=== PATIENT | female | born 1950 | race Caucasian/White ===

== ENCOUNTER 2022-11-27 14:03 | Emergency (ER) | payer MEDICARE, OTHER ==
[~2022-11-27] VITALS: Ht 160 cm; Wt 62.6 kg
[2022-11-27] MEDS ORDERED: METRONIDAZOLE 500 MG/NS 100ML 100 ML IV ONE ×2 (15:00→16:17)
[2022-11-27] MEDS ORDERED: CEFTRIAXONE 1 G in IV DEXTROSE 5% 50 ML IV ONE (15:00)
[2022-11-27] MEDS ORDERED: IV NORMAL SALINE 1000 ML BAG IV ONE (15:00)
[2022-11-27 15:15] LABS: BASOPHILS % (AUTO) 0.3 % (0.0-2.0); EOSINOPHILS % (AUTO) 0.1 % (0.0-7.0); HEMOGLOBIN 11.3 g/dL (10.9-14.3); LYMPHOCYTES # (AUTO) 1.5 K/uL (0.8-4.8); LYMPHOCYTES % (AUTO) 20.5 % (20.5-51.5); MEAN CORPUSCULAR HEMOGLOBIN 30.6 uug (24.7-32.8); MEAN CORPUSCULAR HGB CONC 34 g/dL (32.3-35.6); MEAN CORPUSCULAR VOLUME 89.4 fL (75.5-95.3); MONOCYTES # (AUTO) 0.4 K/uL (0.1-1.30); NEUTROPHILS # (AUTO) 5.2 K/uL (1.8-8.9); NEUTROPHILS % (AUTO) 73.1 % (38.5-71.5); PLATELET COUNT (AUTO) 331 K/uL (179-408); RED BLOOD CELL COUNT(AUTO) 3.69 MIL/uL (3.63-4.92); RED CELL DISTRIBUTION WIDTH 13.3 % (12.3-17.7); WHITE BLOOD COUNT (AUTO) 7.1 K/uL (3.8-11.8)
[2022-11-27 15:16] LABS: DIFFERENTIAL COMMENT 1
[2022-11-27 15:26] LABS: CARBON DIOXIDE 29 mmol/L (21-32); CHLORIDE 96 mmol/L (98-107); CREATININE 0.6 mg/dL (0.6-1.3); GLUCOSE 170 mg/dL (74-106); SODIUM SERUM 130 mmol/L (136-145); UREA NITROGEN, BLOOD 5 mg/dL (7-18)
[2022-11-27 15:40] LABS: ALANINE AMINOTRANSFERASE 25 U/L (14-59); ALBUMIN 3.3 g/dL (3.4-5.0); ALKALINE PHOSPHATASE 43 U/L (50-136); ASPARTATE AMINOTRANSFERASE 10 U/L (15-37); BILIRUBIN,DIRECT < 0.1 mg/dL (0.0-0.2); BILIRUBIN,TOTAL 0.3 mg/dL (0.2-1.0); NT-PRO BNP 144 pg/mL (0-125); TOTAL PROTEIN, SERUM 6.8 g/dL (6.4-8.2)
[2022-11-27 15:42] LABS: LIPASE 158 U/L (73-393)
[2022-11-27 15:43] LABS: ACETONE, SERUM NEGATIVE (NEGATIVE)
[2022-11-27] MEDS ORDERED: CEFTRIAXONE /D5W 50ML IVPB **ER PYXIS IV ONE ×2 (16:17→16:33)
[2022-11-27] MEDS ORDERED: ONDA4TAB11 PO (17:01)
[2022-11-27] MEDS ORDERED: AMOX-430 PO (17:01)
[2022-11-27] MEDS ORDERED: DIPH1TAB PO (17:01)
[2022-11-27 19:08] LABS: *BILIRUBIN,URIN NEGATIVE (NEGATIVE); *BLOOD, URINE NEGATIVE (NEGATIVE); *CLARITY,URINE CLEAR (CLEAR); *COLOR,URINE YELLOW (YELLOW); *KETONES,URINE NEGATIVE (NEGATIVE); *PROTEIN,URINE NEGATIVE (NEGATIVE); *UROBILINOGEN,URINE 0.2 E.U./dl (NORMAL); LEUKOCYTE ESTERASE ,URINE NEGATIVE (NEGATIVE); NITRITE, URINE NEGATIVE (NEGATIVE); UGLUCOSE NEGATIVE (NEGATIVE)
[2022-11-27 19:40] VITALS: BP 125/66; TEMP 98.3; O2SAT 98
== END 2022-11-27 19:30 | disposition home or self-care (01) ==
LOC: ER 14:18
DX: K52.89 Other specified noninfective gastroenteritis and colitis (principal); B96.89 Other specified bacterial agents as the cause of diseases classified elsewhere; E86.0 Dehydration; E11.9 Type 2 diabetes mellitus without complications; E78.5 Hyperlipidemia, unspecified; Z79.2 Long term (current) use of antibiotics; Z79.899 Other long term (current) drug therapy
CPT/HCPCS: 99285; 74176; 96365; 71045; 96367; 80076; 80048; 81003; 82009; 83880; 83690; 85025; 84145; 85730; 87040 ×2; 84484; 36415; 93005; 83605; J0696 ×2; J3490; J7040; A4663

== ENCOUNTER 2024-04-09 16:13 | Emergency (ER) | payer MEDICARE, OTHER ==
[~2024-04-09] VITALS: Ht 157.5 cm; Wt 67.1 kg
[~2024-04-09 16:13] MED LIST: AMOX-430 PO; DIPH1TAB PO; ONDA4TAB11 PO
[2024-04-09] MEDS ORDERED: ESOM40SU PO (16:28)
[2024-04-09] MEDS ORDERED: LEVO125T68 PO (16:28)
[2024-04-09] MEDS ORDERED: OZEMPIC (16:28)
[2024-04-09] MEDS ORDERED: EMPA10TA PO (16:29)
[2024-04-09] MEDS ORDERED: VALS40TA12 PO (16:29)
[2024-04-09] MEDS ORDERED: SIMV20TA2 PO (16:29)
[2024-04-09] MEDS ORDERED: AMLO-212 PO (16:31)
[2024-04-09] MEDS ORDERED: CALC-1026 PO (16:31)
[2024-04-09] MEDS ORDERED: CLON0.1T PO (16:31)
[2024-04-09] MEDS ORDERED: HYDR50TA4 PO (16:31)
[2024-04-09] MEDS ORDERED: NAPR-1196 PO (16:31)
[2024-04-09] MEDS ORDERED: ONDANSETRON 4 MG/2 ML VIAL ONE (16:45)
[2024-04-09] MEDS: ONDANSETRON 4 MG/2 ML VIAL IV ONE (16:52)
[2024-04-09 16:53] LABS: BASOPHILS % (AUTO) 0.5 % (0.0-2.0); EOSINOPHILS # (AUTO) 0.1 K/uL (0.0-0.7); EOSINOPHILS % (AUTO) 1.2 % (0.0-7.0); HEMATOCRIT 34.4 % (31.2-41.9); HEMOGLOBIN 11.9 g/dL (10.9-14.3); LYMPHOCYTES # (AUTO) 2.3 K/uL (0.8-4.8); LYMPHOCYTES % (AUTO) 34.9 % (20.5-51.5); MEAN CORPUSCULAR HEMOGLOBIN 31.2 uug (24.7-32.8); MEAN CORPUSCULAR HGB CONC 35 g/dL (32.3-35.6); MEAN CORPUSCULAR VOLUME 90.1 fL (75.5-95.3); MONOCYTES # (AUTO) 0.7 K/uL (0.1-1.30); MONOCYTES % (AUTO) 10.8 % (0.0-11.0); NEUTROPHILS # (AUTO) 3.4 K/uL (1.8-8.9); NEUTROPHILS % (AUTO) 52.6 % (38.5-71.5); PLATELET COUNT (AUTO) 322 K/uL (179-408); RED BLOOD CELL COUNT(AUTO) 3.82 MIL/uL (3.63-4.92); WHITE BLOOD COUNT (AUTO) 6.5 K/uL (3.8-11.8)
[2024-04-09 16:57] LABS: DIFFERENTIAL COMMENT 1
[2024-04-09 17:08] LABS: ALANINE AMINOTRANSFERASE 24 U/L (14-59); ALBUMIN 4.3 g/dL (3.4-5.0); ALKALINE PHOSPHATASE 50 U/L (50-136); ASPARTATE AMINOTRANSFERASE 11 U/L (15-37); BILIRUBIN,DIRECT 0.1 mg/dL (0.0-0.2); BILIRUBIN,TOTAL 0.4 mg/dL (0.2-1.0); CALCIUM 9.5 mg/dL (8.5-10.1); CARBON DIOXIDE 27 mmol/L (21-32); CHLORIDE 98 mmol/L (98-107); CREATININE 0.9 mg/dL (0.6-1.3); GLUCOSE 125 mg/dL (74-106); LIPASE 61 U/L (16-77); SODIUM SERUM 136 mmol/L (136-145); TOTAL PROTEIN, SERUM 7.7 g/dL (6.4-8.2); UREA NITROGEN, BLOOD 15 mg/dL (7-18)
[2024-04-09 17:43] LABS: *BILIRUBIN,URIN NEGATIVE (NEGATIVE); *BLOOD, URINE NEGATIVE (NEGATIVE); *CLARITY,URINE CLEAR (CLEAR); *COLOR,URINE YELLOW (YELLOW); *KETONES,URINE NEGATIVE (NEGATIVE); *PROTEIN,URINE NEGATIVE (NEGATIVE); *UROBILINOGEN,URINE 0.2 E.U./dl (NORMAL); LEUKOCYTE ESTERASE ,URINE NEGATIVE (NEGATIVE); NITRITE, URINE NEGATIVE (NEGATIVE)
[2024-04-09 17:45] LABS: UGLUCOSE 3+ (NEGATIVE)
[2024-04-09] MEDS: IV NORMAL SALINE 1000 ML BAG IV ONE (17:46)
[2024-04-09] MEDS ORDERED: POTA10CA43 PO (18:15)
[2024-04-09 19:21] VITALS: BP 104/65; TEMP 97.6; O2SAT 96
== END 2024-04-09 19:06 | disposition home or self-care (01) ==
LOC: ER 16:13
DX: R19.7 Diarrhea, unspecified (principal); E87.6 Hypokalemia; R10.9 Unspecified abdominal pain; R91.8 Other nonspecific abnormal finding of lung field; E07.9 Disorder of thyroid, unspecified; E11.9 Type 2 diabetes mellitus without complications; E78.5 Hyperlipidemia, unspecified; E86.0 Dehydration; F20.9 Schizophrenia, unspecified; I11.9 Hypertensive heart disease without heart failure; K21.9 Gastro-esophageal reflux disease without esophagitis; Z79.84 Long term (current) use of oral hypoglycemic drugs; Z79.85 Long-term (current) use of injectable non-insulin antidiabetic drugs; Z79.890 Hormone replacement therapy; Z79.899 Other long term (current) drug therapy
CPT/HCPCS: 99285; 74176; 96374; 96361; 80076; 80048; 81003; 83690; 85025; 36415; J2405; J7040; A4606; A4663